=== PATIENT | female | born 1960 | race Caucasian/White ===

== ENCOUNTER 2024-10-09 07:39 | Outpatient (CLI) | payer MEDICARE ==
[2024-10-09] MEDS ORDERED: Barium Sulfate 96% 176 GM BOT (xray ONLY) ONE (07:43)
[2024-10-09] MEDS ORDERED: E-Z-HD 98% W/W 340GM BOT (x-ray ONLY) ONE (07:43)
== END 2024-10-09 07:40 | disposition home or self-care (01) ==
LOC: RAD 07:39
PROVIDERS: ATTEND Surgery
DX: K44.9 Diaphragmatic hernia without obstruction or gangrene (principal)
CPT/HCPCS: 74220